=== PATIENT | female | born 1955 | race Caucasian/White ===

== ENCOUNTER → 2017-01-01 | Outpatient (CLI) | payer BC ==
[~2017-01-01] MED LIST: MACROBID 1100 MG/CAP PO; NORCO 325 MG-51 TAB PO; PRINIVIL20 MG PO
== END ==
LOC: MC.RAD 13:24
DX: N64.89 Other specified disorders of breast (principal)

== ENCOUNTER → 2017-12-22 | Outpatient (CLI) | payer BC | LOC: MC.RAD 12:41 | DX: Z12.31 Encounter for screening mammogram for malignant neoplasm of breast (principal) ==

== ENCOUNTER → 2018-12-02 | Outpatient (CLI) | payer BC | LOC: ZCOL.LAB 08:44 | DX: Z11.2 Encounter for screening for other bacterial diseases (principal) ==

== ENCOUNTER → 2018-12-25 | Outpatient (CLI) | payer BC | LOC: MC.RAD 11:33 | DX: Z12.31 Encounter for screening mammogram for malignant neoplasm of breast (principal) ==

== ENCOUNTER → 2019-12-29 | Outpatient (CLI) | payer OTHER | LOC: MC.RAD 09:49 | DX: Z12.31 Encounter for screening mammogram for malignant neoplasm of breast (principal) ==

== ENCOUNTER → 2021-02-07 | Outpatient (CLI) | payer OTHER | LOC: MC.RAD 13:45 | DX: Z12.31 Encounter for screening mammogram for malignant neoplasm of breast (principal) ==

== ENCOUNTER → 2021-12-28 | Outpatient (CLI) | payer BC | LOC: COL.RAD 09:18 | DX: R10.11 Right upper quadrant pain (principal) ==

== ENCOUNTER → 2023-02-18 | Outpatient (CLI) | payer BC, MEDICARE, OTHER | LOC: MC.RAD 10:16 | DX: Z12.31 Encounter for screening mammogram for malignant neoplasm of breast (principal); N63.20 Unspecified lump in the left breast, unspecified quadrant ==

== ENCOUNTER → 2023-02-27 | Outpatient (CLI) | payer BC, MEDICARE | LOC: MC.RAD 08:25 | DX: N60.02 Solitary cyst of left breast (principal) ==